=== PATIENT | male | born 1960 | race African-American/Black ===

== ENCOUNTER 2022-04-05 20:11 | Emergency (ER) | payer SELFPAY ==
[2022-04-05] MEDS ORDERED: Ibuprofen 200 MG TAB ONE (22:22)
[2022-04-05 23:25] LABS: SARS-CoV-2 NAA Rapid Test Not Detected (NotDetected)
== END 2022-04-05 23:00 | disposition home or self-care (01) ==
LOC: ERS 20:11
DX: J06.9 Acute upper respiratory infection, unspecified (principal); I10 Essential (primary) hypertension; Z20.822 Contact with and (suspected) exposure to COVID-19
CPT/HCPCS: 71045; 99283